=== PATIENT | female | born 1980 | race Caucasian/White ===

== ENCOUNTER 2021-08-20 20:24 | Emergency (ER) | payer SELFPAY ==
[~2021-08-20] VITALS: Ht 162.6 cm; Wt 70.8 kg
[2021-08-20 20:46] VITALS: BP 148/91
--- NOTE | 2021-08-20 22:22 | NUR ---
Dr. Hoffman examining patient.
--- NOTE | 2021-08-20 22:24 | NUR ---
ER AT BEDSIDE
--- NOTE | 2021-08-20 22:32 | NUR ---
40 Y/O FEMALE BIB FAMILY FOR WELLNESS CHECK. PT HAS BEEN LIVING ON THE STREETS OUT OF CONTACT WITH FAMILY FOR YEARS. FAMILY RECENTLY LOCATED PT AND NOTICED PT IS NOT ACTING THE WAY FAMILY REMEMBERS AND WAS BROUGHT TO THE ER FOR A CHECK-UP. PT HAS UNLABORED BREATHING AND SPEAKING IN FULL SENTENCES. PT IS ABLE TO AMBULATE WITHOUT ASSISTANCE. A/OX2, GCS-13, PT IS CONFUSED AND EASILY DISTRACTED, SOMETIMES NOT MAKING SENSE. PT SEATED IN BED WITH HOB RAISED AND BED IN LOWEST SETTING WITH RAIL UP X1 HX: MENTAL HEALTH AND DRUG ABUSE [facility] DENIES MEDS
[2021-08-20 22:47] LABS: BASOPHILS # (AUTO) 0.1 K/uL (0.00-0.22); BASOPHILS % (AUTO) 0.9 % (0.0-2.0); EOSINOPHILS # (AUTO) 0.4 K/uL (0-0.4); EOSINOPHILS % (AUTO) 4.9 % (0.0-4.0); HEMATOCRIT 38.8 % (36-48); HEMOGLOBIN 12.7 g/dL (12.0-16.0); LYMPHOCYTES # (AUTO) 2.1 K/uL (2.5-16.5); LYMPHOCYTES % (AUTO) 29.7 % (20.5-51.1); MEAN CORPUSCULAR HEMOGLOBIN 30 pg (27-31); MEAN CORPUSCULAR HGB CONC 33 g/dL (33-37); MEAN CORPUSCULAR VOLUME 90.3 fL (80-94); MONOCYTES # (AUTO) 0.6 K/uL (0.8-1.0); NEUTROPHILS % (AUTO) 56.5 % (42.2-75.2); PLATELET COUNT (AUTO) 312 K/uL (140-450); RED BLOOD CELL COUNT(AUTO) 4.29 MIL/uL (4.20-5.40); RED CELL DISTRIBUTION WIDTH 14.9 % (11.6-13.7); WHITE BLOOD COUNT (AUTO) 7.1 K/uL (4.8-10.8)
[2021-08-20 23:07] LABS: ALBUMIN 3.1 g/dL (3.4-5.0); CARBON DIOXIDE 28.6 mmol/L (21-32); CREATININE 0.7 mg/dL (0.6-1.3); POTASSIUM 3.6 mmol/L (3.5-5.1); TOTAL BILIRUBIN 0.3 mg/dL (0.0-1.0)
[2021-08-20] MEDS ORDERED: CIPR500T4 PO (23:19)
[2021-08-20 23:27] VITALS: BP 148/91
--- NOTE | 2021-08-20 23:28 | NUR ---
Patient discharged with v/s stable. Written and verbal after care instructions given and explained. Patient alert, oriented and verbalized understanding of instructions. Ambulatory with steady gait. All questions addressed prior to discharge. ID band removed. Patient advised to follow up with PMD. Rx of CIPRO given. Patient educated on indication of medication including possible reaction and side effects. Opportunity to ask questions provided and answered. VSS, A/OX4, AMBULATORY, UNLABORED BREATHING, AND CALM DEMEANOR. SISTER WAS ABLE TO SIGN ON PT BEHALF.
== END 2021-08-20 23:28 | disposition home or self-care (01) ==
LOC: MED 20:24
DX: R41.82 Altered mental status, unspecified (principal); N39.0 Urinary tract infection, site not specified; F17.210 Nicotine dependence, cigarettes, uncomplicated
CPT/HCPCS: 36415; 80053; 81002; 81025; 85025; 99283